=== PATIENT | male | born 1985 | race Caucasian/White ===

== ENCOUNTER 2022-02-26 15:00 | Outpatient (RCR) | payer BC, SELFPAY ==
[2022-02-26 17:05] LABS: D Dimer Quantitative* 0.27 ug/ml (0.00-0.50)
[2022-03-01 00:02] LABS: B2Glycoprotein 1, IgG Antibody < 10 SGU (<=20); B2Glycoprotein 1, IgM Antibody < 10 SMU (<=20)
[2022-03-01 00:13] LABS: Cardiolipin Antibody IgA < 10 APL (<=11); Cardiolipin Antibody IgG < 10 GPL (<=14); Cardiolipin Antibody IgM 13 MPL (<=12)
[2022-03-01 23:11] LABS: Protein C, Total Antigen > 95 % (63-153)
[2022-03-02 05:39] LABS: Prothrombin Time 12.5 sec (12.0-15.5); dRVVT Screen 40 sec (33-44)
== END 2022-03-23 23:59 | disposition home or self-care (01) ==
LOC: CCIC 15:00
PROVIDERS: PCP Family Medicine; Visit Provider Internal Medicine Hematology & Oncology
DX: I26.99 Other pulmonary embolism without acute cor pulmonale (principal); Z79.01 Long term (current) use of anticoagulants
CPT/HCPCS: 36415; 85245; 85302; 85306; 85379; 86039; 86146; 86147; 86225; 86235; 86376; 99202; 99204

== ENCOUNTER 2022-06-18 08:00 | Outpatient (RCR) | payer BC, SELFPAY ==
[2022-06-09 15:29] LABS: D Dimer Quantitative* 0.35 ug/ml (0.00-0.50)
== END 2022-10-05 23:59 | disposition home or self-care (01) ==
LOC: CCIC 08:00
PROVIDERS: PCP Family Medicine; Visit Provider Internal Medicine Hematology & Oncology
DX: I26.99 Other pulmonary embolism without acute cor pulmonale (principal)
CPT/HCPCS: 36415; 85379; 99212; 99213; 99214

== ENCOUNTER 2023-12-14 12:32 | Day surgery (SDC) | payer BC, SELFPAY ==
[2023-12-14] VITALS (18 sets, daily range): BP systolic 101–137; BP diastolic 56–80; PULSE 70–99; RESP 14–18; TEMP 36.3–37; O2SAT 89–96; BMI 27.1
--- NOTE | 2023-12-14 13:26 | ED.ABDPAIN ---
HPI - Abdominal Pain General Time Seen by Provider: 13:27 Date Seen: 12/14/23 Chief Complaint: Abdominal Pain Stated Complaint: abdominal pain Time Seen by Provider: 12/14/23 12:43 Source: patient and RN notes reviewed Mode of arrival: ambulatory Limitations: no limitations History of Present Illness HPI narrative: This 38-year-old male is coming in with worsening epigastric to left upper quadrant abdominal pain today. He has had no appetite, has not been able to eat. He had a little looser stool earlier today. He has had 2 episodes of bilious, nonbloody vomiting. He has not had any prior abdominal surgeries. He has felt warm with the pain but no fevers noted. He has never had anything like this before. He drinks social alcohol, nothing significant recently. He has never had a history of pancreatitis. MD elicited complaint: abdominal pain Related Data Home Medications Medication Instructions Recorded Confirmed No Known Home Medications 12/14/23 12/14/23 Allergies Allergy/AdvReac Type Severity Reaction Status Date / Time No Known Drug Allergies Allergy Verified 12/14/23 14:08 Review of Systems Status of ROS Reports: 6 or more systems reviewed and unremarkable except as noted in History and below [facility] Social History Smoking Status: Never smoker Do you use any of these nicotine containing products: None Second hand tobacco smoke exposure: No How often do you have a drink containing alcohol: never AUDIT-C Alcohol total score: 0 Non-prescribed substance use: denies use service: No Exam Const: Vital Signs, click to edit/add: Vital Signs - 24 hr 12/14/23 12:39 12/14/23 13:53 Temperature 97.4 F L Pulse Rate [Right Pulse Oximeter] 70 Respiratory Rate 18 Blood Pressure [Ri ght Upper Arm] 136/78 Pulse Oximetry 96 94 Oxygen Delivery Me thod Room Air 38-year-old male is hanging onto an emesis bag in exam room for, looks pale. It skin without any rash or jaundice. Sclera clear, conjugate gaze. Neck is supple, no adenopathy or masses noted. Lungs clear come good air entry, no wheezing or crackles. CV regular rate rhythm, no murmur, normal S1-S2. Abdomen is soft, nondistended. He has very definite epigastric pain with definite sense of rebound guarding in that area. Pain does extend just a little to the left of the epigastric area as well as just a little to the right. Would not say he definitively has knee pain over the right upper quadrant consistent with biliary issues however. I feel no masses, bowel sounds are present. Patient did ambulate in. Documenting provider has reviewed patient's vital signs: yes Course Course ED Course: Patient will have appropriate blood work, IV placed. Will give him normal saline for fluids, Zofran and morphine for symptom control. This could be pancreas with so CAD gallbladder disease, gastritis or even duodenitis, underlying ulcer disease is possible. He currently is stable but in pain, will see if the morphine helps. Will be proceeding with CT imaging with IV contrast. This possible ultrasound would need to be considered if there is any pancreatitis. Reevaluation(s) Time of Reevaluation #1: 15:07 Reevaluation #1: Reviewed with patient his CT results, provided a copy of the report. His pain is improved, re-evaluation of his abdominal exam reveals mid right sided tenderness where he is feeling his pain right now. He admits that it felt more upper epigastric area. He is not tender in the epigastric area right now. He is reclined in the chair though beyond definitely has right mid abdominal tenderness. He is aware that he will be seen the general surgeon, plan at this time is for appendectomy. Consultations Consultation #1: Did update Dr. Lorenzo regarding CT imaging. She will look at the CT, we will await the lipase the comprehensive metabolic panel. Patient is reportedly comfortably resting. Time: 14:32 Vital Signs Vital signs: Initial Vital Signs Temperature 97.4 F L 12/14/23 12:39 Temperature Source Temporal Artery Scan 12/14/23 12:39 Pulse Rate 70 12/14/23 12:39 Respiratory Rate 18 12/14/23 12:39 Blood Pressure 136/78 12/14/23 12:39 Blood Pressure Mean 97 12/14/23 12:39 Blood Pressure Position Sitting 12/14/23 12:39 Pulse Oximetry 96 12/14/23 12:39 Oxygen Delivery Method Room Air 12/14/23 12:39 Vital Signs Temperature 97.4 F L 12/14/23 12:39 Pulse Rate 70 12/14/23 12:39 Respiratory Rate 18 12/14/23 12:39 Blood Pressure 136/78 12/14/23 12:39 Pulse Oximetry 96 12/14/23 12:39 Oxygen Delivery Method Room Air 12/14/23 12:39 Temperature 97.4 F L 12/14/23 12:39 Pulse Rate 70 12/14/23 12:39 Respiratory Rate 18 12/14/23 12:39 Blood Pressure 136/78 12/14/23 12:39 Pulse Oximetry 94 12/14/23 13:53 Oxygen Delivery Method Room Air 12/14/23 12:39 Medications Administered Medications: Discontinued Medications Generic Name Dose Route Start Last Admin Trade Name Minoo PRN Reason Stop Dose Admin Sodium Chloride 1,000 mls @ 500 mls/hr 12/14/23 13:31 12/14/23 15:10 0.9 % Sodium Chloride 1000 Ml IV 12/14/23 15:30 Infused .Q2H LESLIE Infusion Morphine Sulfate 4 mg 12/14/23 13:30 12/14/23 13:40 Morphine 4 Mg/Ml Inj IVP 12/14/23 13:31 4 mg ONCE ONE Administration Ondansetron HCl 4 mg 12/14/23 13:30 12/14/23 13:39 Ondansetron 2 Mg/Ml Inj IVP 12/14/23 13:31 4 mg ONCE ONE Administration MDM - Abdominal Pain Lab Data Attestation: I reviewed the patient's lab results. Labs: Lab Results 12/14/23 12/14/23 Range/Units 12:55 13:43 WBC 14.13 H (4.50-11.00) K/uL RBC 5.51 (4.30-5.90) m/uL Hgb 15.4 (13.5-17.5) gm/dL Hct 46.7 (37.0-53.0) % MCV 85 (80-100) fL MCH 28 (26-34) pg MCHC 33 (32-36) gm/dL RDW Coeff of Raquel 13.0 (11.5-15.5) % Plt Count 252 (140-440) K/uL Neut % (Auto) 80.0 H (42.0-72.0) % Lymph % (Auto) 10.1 L (20-44) % [place] % (Auto) 9.0 (0.0-11.0) % Eos % (Auto) 0.4 (0.0-7.0) % Baso % (Auto) 0.4 (0.0-3.0) % Neut # (Auto) 11.30 H (1.7-7.0) K/uL Lymph # (Auto) 1.40 (0.90-2.90) K/uL [place] # (Auto) 1.30 H (0.00-0.90) K/UL Eos # (Auto) 0.10 (0.00-0.50) K/uL Baso # (Auto) 0.10 (0.00-0.30) K/uL Abs Immat Gran (auto) 0.00 (0.00-0.30) K/uL Imm/Tot Granulo (auto) 0.1 % Sodium 138 (135-149) mmol/L Potassium 4.0 (3.6-5.1) mmol/L Chloride 107 (96-114) mmol/L Carbon Dioxide 27 (20-32) mmol/L Anion Gap 4 L (7-15) mEq/L BUN 18 (5-24) mg/dL Creatinine 1.0 (0.5-1.5) mg/dL Estimated Creat Clear 109.93 Estimated GFR 99 ml/min Glucose 123 H (60-115) mg/dL Lactate 1.5 (0.5-1.9) mmol/L Calcium 9.7 (8.4-10.6) mg/dL Total Bilirubin 0.6 (0.1-1.5) mg/dL Direct Bilirubin 0.2 (0.0-0.5) mg/dL AST 31 (12-35) U/L ALT 57 H (4-50) U/L Alkaline Phosphatase 84 (40-150) U/L C-Reactive Protein < 0.5 L (0.5-1.0) mg/dL Total Protein 8.1 (6.0-8.3) g/dL Albumin 4.9 (3.3-5.0) g/dL Lipase 33 (23-300) U/L Imaging Data CT scan - abdomen: Attestation: I have reviewed the pertinent imaging results. Radiologist's impression: Patient: RAGHAV RIVERA Facility:?[facility] Patient ID:?[id number] Site Patient ID:?[id number]. Site :?1985 Study:?CT-Abdomen/Pelvis 98CC ISOVUE 370-12/14/2023 2:08:39 PM Ordering Physician:MOODY TIPTON Final Report: Indication: Epigastric pain Technique: CT abdomen/pelvis with IV contrast, 98 mL Isovue 370 Comparison: None Findings: Lower thorax: Trace left basilar atelectasis; otherwise, unremarkable. Abdomen/pelvis: The liver, gallbladder and biliary system, spleen, pancreas, adrenal glands, kidneys, ureters, bladder, seminal vesicles, prostate, and visualized external genitalia are within normal limits. There is no evidence of bowel obstruction. A small appendicolith is present in the appendix near the cecum. The appendix is fluid-filled, and measures up to approximately 8 millimeters in diameter. There is slight enhancement of the wall of the appendix and questionable very faint periappendiceal inflammatory changes. No free fluid or free air. No abscess. No abdominopelvic lymphadenopathy. The vasculature is unremarkable. Soft tissue/musculoskeletal: Unremarkable Impression: Equivocal findings for acute appendicitis as detailed above. Recommend consultation with surgery for further management recommendations. Please note that all CT scans at this facility use dose modulation, iterative reconstruction, and/or weight-based dosing when appropriate to reduce radiation dose to as low as reasonably achievable. Dictated by Jose Collado MD @ 12/14/2023 2:26:39 PM (Electronic Signature) Critical Care Time Critical Care Time Critical Care Time: No Discharge Plan Discharge Clinical Impression: Acute appendicitis Qualifiers: Acute appendicitis type: with localized peritonitis Appendicitis gangrene presence: unspecified whether gangrene present Appendicitis perforation presence: unspecified whether perforation present Appendicitis abscess presence: unspecified whether abscess present Qualified Code(s): K35.30 - Acute appendicitis with localized peritonitis, without perforation or gangrene Patient Disposition: XFER to OR Condition: Unchanged Follow Up/Referrals: Stephen Stewart MD [Referring] -
--- NOTE | 2023-12-14 13:30 | CT_ITS ---
Patient: RAGHAV RIVERA Facility:?[facility] Patient ID:?[id number] Site Patient ID:?[id number]. Site :?1985 Study:?CT-Abdomen/Pelvis 98CC ISOVUE 370-12/14/2023 2:08:39 PM Ordering Physician:?DR. TIPTON Final Report: Indication: Epigastric pain Technique: CT abdomen/pelvis with IV contrast, 98 mL Isovue 370 Comparison: None Findings: Lower thorax: Trace left basilar atelectasis; otherwise, unremarkable. Abdomen/pelvis: The liver, gallbladder and biliary system, spleen, pancreas, adrenal glands, kidneys, ureters, bladder, seminal vesicles, prostate, and visualized external genitalia are within normal limits. There is no evidence of bowel obstruction. A small appendicolith is present in the appendix near the cecum. The appendix is fluid-filled, and measures up to approximately 8 millimeters in diameter. There is slight enhancement of the wall of the appendix and questionable very faint periappendiceal inflammatory changes. No free fluid or free air. No abscess. No abdominopelvic lymphadenopathy. The vasculature is unremarkable. Soft tissue/musculoskeletal: Unremarkable Impression: Equivocal findings for acute appendicitis as detailed above. Recommend consultation with surgery for further management recommendations. Please note that all CT scans at this facility use dose modulation, iterative reconstruction, and/or weight-based dosing when appropriate to reduce radiation dose to as low as reasonably achievable. Dictated by Jose Collado MD @ 12/14/2023 2:26:39 PM ----- ADDENDUM ----- Report was received by Dr. Tipton at 2:29 p.m. central standard time on 12/14/2023. Dictated by Jose Collado MD @ Dec 14 2023 2:33PM Signed by:?Jose Collado MD @12/14/2023 2:26:39 PM (Electronic Signature)
[2023-12-14] MEDS: ONDANSETRON 2 MG/ML inj 4 MG IVP (13:39)
[2023-12-14] MEDS: MORPHINE 4 MG/ML INJ IVP (13:40)
[2023-12-14] MEDS: 0.9 % SODIUM CHLORIDE 1000 ml 1,000 ML 500 ML IV (13:40)
[2023-12-14 13:48] LABS: Lactate* 1.5 mmol/L (0.5-1.9)
[2023-12-14 13:55] LABS: Basophils Percent Auto 0.4 % (0.0-3.0); Eosinophils Percent Auto 0.4 % (0.0-7.0); Hematocrit 46.7 % (37.0-53.0); Hemoglobin* 15.4 gm/dL (13.5-17.5); Immature Granulocytes Pct Auto 0.1 %; Lymphocytes Percent Auto 10.1 % (20-44); Mean Corpuscular HGB Conc 33 gm/dL (32-36); Mean Corpuscular Hemoglobin 28 pg (26-34); Mean Corpuscular Volume 85 fL (80-100); Platelet Count* 252 K/uL (140-440); Red Blood Count 5.51 m/uL (4.30-5.90); White Blood Count* 14.13 K/uL (4.50-11.00)
[2023-12-14 13:59] LABS: Slide Review Reflex No
[2023-12-14 14:14] LABS: Albumin* 4.9 g/dL (3.3-5.0); Chloride* 107 mmol/L (96-114); Sodium* 138 mmol/L (135-149)
[2023-12-14 14:15] LABS: Bilirubin Direct* 0.2 mg/dL (0.0-0.5)
[2023-12-14 14:16] LABS: Est. Creatinine Clearance* 109.93; Estimated Glomerular Filt Rate 99 ml/min
[2023-12-14 14:17] LABS: Alanine Aminotransferase* 57 U/L (4-50); Alkaline Phosphatase* 84 U/L (40-150); Anion Gap 4 mEq/L (7-15); Aspartate Amino Transferase* 31 U/L (12-35); Bilirubin Total* 0.6 mg/dL (0.1-1.5); Blood Urea Nitrogen* 18 mg/dL (5-24); Calcium* 9.7 mg/dL (8.4-10.6); Carbon Dioxide* 27 mmol/L (20-32); Lipase* 33 U/L (23-300); Total Protein* 8.1 g/dL (6.0-8.3)
[2023-12-14 14:20] LABS: C Reactive Protein* < 0.5 mg/dL (0.5-1.0)
[2023-12-14 14:32] LABS: Glucose* 123 mg/dL (60-115)
--- NOTE | 2023-12-14 15:49 | P.GSHP_ITS ---
History of Present Illness History of Present Illness Date Seen: 12/14/23 Chief complaint: abdominal pain Narrative: Cristi Tijerina is a 38 year old male who presented to the emergency department for worsening abdominal pain. He states the pain started this morning. Initially he felt like he had a stomachache, so he went home. He did vomit twice. The pain continued to worsen and is now in the right lower quadrant. He has never had pain like this before. He has never had surgery before. Denies any fevers at home. Diarrhea x1. His past medical history significant for pulmonary embolism a few years back, not currently on anticoagulation. 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 Review of Systems Status of ROS: Reports: 10 or more systems reviewed and unremarkable except as noted in History and below [facility] Social History Smoking Status: Never smoker Do you use any of these nicotine containing products: None Second hand tobacco smoke exposure: No How often do you have a drink containing alcohol: never AUDIT-C Alcohol total score: 0 Non-prescribed substance use: denies use service: No Meds Home Medications and Allergies Home Medications Medication Instructions Recorded Confirmed Type No Known Home Medications 12/14/23 12/14/23 History Allergies Allergy/AdvReac Type Severity Reaction Status Date / Time No Known Drug Allergies Allergy Verified 12/14/23 14:08 Exam Narrative: Exam Narrative: General: Alert and oriented, no acute distress Respiratory: Equal breath rise bilaterally, maintained on room air CV: Well perfused, regular rhythm and rate Abdomen: Soft, tender to palpation right lower quadrant with some voluntary guarding, no rebound. Const: Vital Signs, click to edit/add: Vital Signs - 24 hr 12/14/23 12:39 12/14/23 13:53 Temperature 97.4 F L Pulse Rate [Right Pulse Oximeter] 70 Respiratory Rate 18 Blood Pressure [Ri ght Upper Arm] 136/78 Pulse Oximetry 96 94 Oxygen Delivery Me thod Room Air Results Results Labs: Leukocytosis (14). CMP within normal limits. Abdomen CT scan report/results: report reviewed and image reviewed Progress Note:A&P Assessment and plan (1) Acute appendicitis: Status: Acute Plan The patient presented with a history, exam and imaging findings consistent with acute appendicitis. I discussed the treatment options with the patient including non-surgical and surgical options. I recommended laparoscopic appendectomy. The risks of surgery were reviewed with the patient including the risks of bleeding, post-operative wound or intra-abdominal infection, injury to abdominal structures and possible conversion to an open operation. We also discussed anesthetic complications including NH, stroke, respiratory failure and blood clots. The patient voiced an understanding of our conversation, had the opportunity to ask questions, agreed to accept the risks of surgery and asked that we proceed with surgery. -OR for laparoscopic appendectomy -Zosyn ordered for preoperative antibiotics -anticipate patient will be able to go home following surgery
[2023-12-14] MEDS: LACTATED RINGERS 1000 ML 1,000 ML 125 ML IV (16:00)
[2023-12-14] MEDS: PIPERACILLIN/TAZOBACTAM 3.375 GM in 0.9 % SODIUM CHLORIDE Mini-bag 100 ML IVPB (16:15)
[2023-12-14] MEDS: BUPIVACAINE 0.25% 30 ML INJECTION (16:37)
--- NOTE | 2023-12-14 17:12 | P.ANES_ITS ---
Anesthesia Charges Start Date/Time Anesthesia Start Date: 12/14/23 Anesthesia Start Time: 15:57 Stop Date/Time Anesthesia Stop Date: 12/14/23 Anesthesia Stop Time: 16:58 Summary Emergency: CUT OFF SAW OPERATOR
--- NOTE | 2023-12-14 17:14 | P.GSOP_ITS ---
Operative Note Date of procedure: 12/14/23 Pre-op diagnosis: Acute appendicitis Post-op diagnosis: Same, non perforated Type of Procedure: Laparoscopic appendectomy Indications: Patient is a 38-year-old male who presented to the emergency department with clinical history and workup consistent with acute appendicitis. Risks and benefits of operative intervention were discussed at length with the patient. Risks included but was not limited to: Bleeding, infection, risk of damage to surrounding structures, possible need for additional procedures, possible need to convert to an open operation and postoperative complications such as pneumonia, pulmonary emboli or [place]. All questions and concerns were addressed with the patient agreeing to proceed. Procedure Description: After discussing the risks and benefits of the procedure, the patient signed informed consent.? The operative site was marked and the patient was brought to the operating room and placed on the operating table in supine position.? Care was taken to pad the patient's pressure points.?? The patient was then intubated by anesthesia.?? The operative site was then prepped and draped in the usual sterile fashion.? A time-out was then performed. Entrance to the abdomen was obtained via a 5 mm optical trocar in the left upper quadrant. The abdomen was insufflated and briefly surveyed for any signs of injury. There were none. A 12 mm port was placed at the umbilicus as well as a 5 mm port in the left lower quadrant under direct vision. The patient was then placed in Trendelenburg position with the right side up. The small bowel was gently moved out of the way and the appendix was in view. A small amount of d issection was necessary to free the appendix from the surrounding pelvic attachments. This was grasped and pulled into view. A mesenteric window was created between the base of the appendix and the mesoappendix. A 45 mm Endo-SOFIA purple load stapler was then used to transect the appendix at its base. A 60 mm vascular load stapler was then used to take the mesoappendix. The staple lines were inspected for bleeding. There was none. The appendix was then removed from the abdomen using an Endo-Catch bag. The specimen was sent to pathology. The 12 mm port site fascia was closed with 0 Vicryl. All ports removed under direct visualization. The skin was then closed with absorbable subcuticular suture. Sterile dressings were then applied. Instrument sponge and needle counts were correct at the end of the case. The patient was then woken and transported to the PACU in stable condition. Findings: Acute appendicitis, non perforated Anesthesia: CARLOSA Surgeon: Beba Lorenzo MD Estimated blood loss (mL): 5 Specimen: Appendix Condition: stable Disposition: PACU
--- NOTE | 2023-12-14 19:10 | PC.NURSE ---
Pt arrived from surgery at 1745. Pt alert and cooperative but drowsy. Pt had no complaints of pain. Pt's at bedside. Pt's lap sites were dry and intact. VSS. Pt tolerating ice chips, water and crackers.
[2023-12-14] MEDS: HYDROCODONE-ACETAMIN 5-325 MG 1 TAB PO (21:19)
--- NOTE | 2023-12-15 15:29 | P.DS_ITS ---
DS: Providers Provider Date Seen: 12/14/23 Primary care physician: Not a Local Provider Attending Physician on discharge: Beba Lorenzo MD DS: Summary Hospital Course Hospital Course: Patient presented to the emergency department with workup consistent with acute appendicitis. He was taken to the operating room for laparoscopic appendectomy. Postoperatively patient recovered well. He was voiding independently, pain was well controlled, ambulating without difficulty and tolerating a regular diet. Patient was discharged home with plan for follow-up in 2 weeks. Time Spent with Patient Time attestation: Total time spent providing and/or coordinating discharge services: Exam Narrative: Exam Narrative: See exam from same date. Const: Vital Signs, click to edit/add: Vital Signs - 24 hr 12/14/23 17:00 12/14/23 17:05 12/14/23 17:10 Temperature 98.1 F Pulse Rate 98 86 84 Respiratory Rate 16 16 16 Blood Pressure 114/71 112/64 110/62 Pulse Oximetry 89 94 Oxygen Delivery Me thod Room Air Oxygen Flow Rate 2 Fraction of Inspir ed Oxygen 94 12/14/23 17:15 12/14/23 17:20 12/14/23 17:25 Temperature Pulse Rate 90 90 83 Respiratory Rate 16 16 16 Blood Pressure 111/69 120/66 130/71 Pulse Oximetry 95 95 95 Oxygen Delivery Me thod Oxygen Flow Rate Fraction of Inspir ed Oxygen 12/14/23 17:30 12/14/23 17:35 12/14/23 17:43 Temperature 98.6 F 97.7 F Pulse Rate 85 82 99 Respiratory Rate 16 16 14 Blood Pressure 126/71 137/80 124/70 Pulse Oximetry 94 94 92 Oxygen Delivery Me thod Room Air Oxygen Flow Rate 0 0 Fraction of Inspir ed Oxygen 94 94 12/14/23 17:45 12/14/23 18:00 12/14/23 18:15 Temperature 97.9 F 98.1 F 98.4 F Pulse Rate 99 85 94 Respiratory Rate 16 16 16 Blood Pressure 117/63 112/66 122/72 Pulse Oximetry 90 92 92 Oxygen Delivery Me thod Room Air Room Air Room Air Oxygen Flow Rate 0 0 0 Fraction of Inspir ed Oxygen 94 94 94 12/14/23 18:30 12/14/23 19:00 12/14/23 19:30 Temperature 98.4 F 98.0 F Pulse Rate 81 81 85 Respiratory Rate 16 16 16 Blood Pressure 101/56 L 115/75 116/71 Pulse Oximetry 91 92 92 Oxygen Delivery Me thod Room Air Room Air Room Air Oxygen Flow Rate 0 0 Fraction of Inspir ed Oxygen 94 94 12/14/23 20:30 Temperature 97.8 F Pulse Rate 89 Respiratory Rate 14 Blood Pressure 117/70 Pulse Oximetry Oxygen Delivery Me thod Room Air Oxygen Flow Rate Fraction of Inspir ed Oxygen Discharge Plan Discharge Disposition: Home w/ Parent or Adult Discharging Surgeon: Beba Lorenzo Follow-Up Appointment: 2 week follow up Prescriptions: New hydrocodone-acetaminophen 5-325 mg tablet 1 tab PO Q6H PRN (Reason: pain) Qty: 15 0RF senna 8.6 mg capsule 8.6 mg PO DAILY PRN (Reason: constipation) Qty: 90 0RF Activity Level: No strenuous activity Activity Detail: Activity as tolerated. Avoid strenuous activity. No lifting greater than 20 lb for 2 weeks. Discharge Diet: Regular Patient Instructions: Hydrocodone/Acetaminophen (By mouth), Senna (By mouth), General Anesthesia (DC), Laparoscopic Appendectomy (DC), Post-Operative Instructions: Appendectomy Additional Instructions: You were prescribed a narcotic pain medication. In addition you may supplement with Tylenol and/or ibuprofen. Be sure to not exceed greater than 4 g of Tylenol in a 24 hour period. While on narcotic pain medicine please take stool softeners. A prescription of stool softeners has been sent to the pharmacy. Stop if having greater than 2 stools per day. You have Steri-Strips dressings in place, allowed them to follow-up on your own. Do not soak in a bath or swim for 2 weeks. Follow-up with Dr. Lorenzo in 2-3 weeks. Please call if you are experiencing severe pain, nausea, vomiting, difficulty urinating, fever or not had a bowel movement in 4 days after surgery. Follow-up: Stephen Stewart MD [Referring] - Beba Lorenzo MD [Staff Physician] - 12/31/23 1:00 pm (post-surgical follow up at [facility]. ) Discharge Orders: Discharge Order (Routine); Ordered 12/14/23 Ordered By: Beba Lorenzo
== END 2023-12-14 21:50 | disposition home or self-care (01) ==
LOC: ED 16:01 → OR 16:31 → MEDSURG 18:14
PROVIDERS: Emergency Provider Family Medicine; Visit Provider Surgery
PROC: 0DTJ4ZZ Resection of Appendix, Percutaneous Endoscopic Approach (ICD-10-PCS; CPT 44970; principal; 2023-12-14 16:15)
DX: K35.80 Unspecified acute appendicitis (principal); R10.13 Epigastric pain
CPT/HCPCS: 44970; 00840; 36415; 74177; 80053; 82248; 83605; 83690; 85025; 86140; 88304; 94761; 99140; 99284; 99285; A9270; J0665; J1100; J1170; J1630; J1885; J2270; J2405; J2543; J2704; J2710; J3010; J7030; Q9967

== ENCOUNTER 2023-12-20 09:53 | Outpatient (CLI) | payer BC, SELFPAY ==
[2023-12-23 22:34] LABS: HSV 1 Subtype by PCR Detected; HSV 2 Subtype by PCR Not Detected; Herpes Simplex Subtype Source Vesicle
== END 2023-12-20 09:54 | disposition home or self-care (01) ==
LOC: NFLDUCREF 09:53
PROVIDERS: Visit Provider Nurse Practitioner Family
DX: R21 Rash and other nonspecific skin eruption (principal)
CPT/HCPCS: 87529